=== PATIENT | female | born 1935 | race Caucasian/White ===

== ENCOUNTER 2017-06-20 12:07 | Inpatient (IN) ==
[2017-06-20 13:07] LABS: Albumin Level 1.5 gm/dL (3.4-5.0); Albumin/Globulin Ratio 0.4 (1.1-1.8); Anion Gap 9.4 mEq/L (5-15); Bilirubin,Total 0.2 mg/dL (0.2-1.0); Calcium 7.8 mg/dL (8.5-10.1); Globulin 3.9 gm/dl (1.3-3.2); Potassium 4.4 mmoL/L (3.5-5.1); Total Protein,Serum 5.4 gm/dL (6.4-8.2)
[2017-06-20 13:07] LABS: Microscopic, Urine URINE MICROSCOPIC (MICROSCOPIC)
[2017-06-20 13:08] LABS: Appearance,Urine CLEAR (Clear); Bilirubin,Urine Negative (Negative); Blood, Urine Negative (Negative); Color,Urine YELLOW (Yellow); Glucose,Urine (UA) Negative (Negative); Ketones,Urine Negative (Negative); Leukocyte Esterase,Urine Negative (Negative); PH,Urine 5.5 (5.0-8.5); Protein,Urine Negative (Negative); Specific Gravity, Urine 1.025 (1.005-1.030); Urobilinogen,Urine 0.2 EU/dl (0.2)
[2017-06-20 13:09] LABS: Basophils % 0.4 % (0.1-2.0); Eosinophils # 0.1 K/mm3 (0.0-0.4); Eosinophils % 1.9 % (0.1-12.0); Hematocrit 28.1 % (37.0-47.0); Hemoglobin 8.5 g/dL (12.2-16.2); Lymphocytes # 0.7 K/mm3 (0.7-4.5); Lymphocytes % 16.4 K/mm3 (10-50); Mean Corpuscular HGB Conc 30.3 g/dL (31.8-35.4); Mean Corpuscular Hemoglobin 30.9 pg (27.0-31.2); Mean Corpuscular Volume 101.9 fl (81-99); Mean Platelet Volume 7.8 fl (7.4-10.4); Monocytes # 0.2 K/mm3 (0.1-1.0); Monocytes % 5.1 % (1.7-9.3); Neutrophils # 3.3 K/mm3 (1.8-7.8); Neutrophils % 76.2 % (37.0-80.0); Platelet Count 190 K/mm3 (142-424); Red Blood Count 2.76 M/mm3 (4.20-5.40); Red Cell Distribution Width 18.5 % (11.5-17.5); White Blood Count 4.4 K/mm3 (4.8-10.8)
[2017-06-20 13:17] LABS: Bacteria,Urine 2+ /lpf; Yeast,Urine 1+ /lpf
--- NOTE | 2017-06-20 13:43 | Emergency Department Note ---
ED Disposition Clinical Impression: Cellulitis Hypotension Qualifiers: Hypotension type: unspecified hypotension type Qualified Code(s): I95.9 - Hypotension, unspecified Anemia Qualifiers: Anemia type: other cause Other causes of anemia: other cause, not classified Qualified Code(s): D64.89 - Other specified anemias Disposition: Admitted As Inpatient Condition on Discharge: Good Time of Disposition: 16:01 - Critical Care Critical Care Time: No Attestation: On 06/20/17, the high probability of a clinically significant, sudden or life threatening deterioration of the following system(s) required my full and direct attention, intervention and personal management. The time I documented below is in addition to time spent performing reported procedures but includes the following listed in this critical care notation. Total Critical Care Time: 75 Vital system(s) involved:: Circulatory Failure My critical care processes included: Assessment & monitoring of V/S, Initial and Re-exams, Data Review/Interpretation, Coordinating Care, Medication Orders and management, Documentation Medical Decision Making - Medical Records Medical records reviewed: Yes: I reviewed the patient's medical records. - [place] Inquiry Pt receiving controlled substance: No Vital Signs: 06/20/17 12:17 06/20/17 14:17 06/20/17 16:03 Temperature 97.9 F Temperature Source Oral Pulse Rate Pulse Rate [Right Radial] 63 60 Respiratory Rate 16 20 Blood Pressure Blood Pressure [Right Radial Artery] 99/48 80/42 97/44 Blood Pressure Mean [Right Radial Artery] 65 54 61 Blood Pressure Source [Right Radial Artery] Automatic Cuff Manual Cuff/ Auscultation Manual Cuff/ Auscultation Blood Pressure Position [Right Radial Artery] Supine Supine Sitting 02 Sat by Pulse Oximetry 96 97 Oxygen Delivery Method Nasal Cannula Nasal Cannula Oxygen Flow Rate (LPM) 3 3 06/20/17 16:31 Temperature 98.4 F Temperature Source Pulse Rate 61 Pulse Rate [Right Radial] Respiratory Rate 16 Blood Pressure 93/51 Blood Pressure [Right Radial Artery] Blood Pressure Mean [Right Radial Artery] Blood Pressure Source [Right Radial Artery] Blood Pressure Position [Right Radial Artery] 02 Sat by Pulse Oximetry Oxygen Delivery Method Nasal Cannula Oxygen Flow Rate (LPM) - Lab Data Lab results reviewed: Yes: I reviewed the patient's lab results. Lab Results 06/20/17 12:38: Urine Color Yellow, Urine Appearance Clear, Urine pH 5.5, Ur Specific Savage 1.025, Urine Protein Negative, Urine Glucose (UA) Negative, Urine Ketones Negative, Urine Blood Negative, Urine Nitrate Negative, Urine Bilirubin Negative, Urine Urobilinogen 0.2, Ur Leukocyte Esterase Negative, Urine RBC None, Urine WBC 3-5, Ur Squamous Epith Cells 3-5, Urine Bacteria 2+, Urine Yeast 1+ 06/20/17 12:40: Total Creatine Kinase 28, CK-MB (CK-2) 1.6, CK-MB (CK-2) Rel Index 5.7 H, Troponin I < 0.02, Amylase 15 L 06/20/17 12:40: Lipase 26 L 06/20/17 12:45: WBC 4.4 L, RBC 2.76 L, Hgb 8.5 L, Hct 28.1 L, MCV 101.9 H, MCH 30.9, MCHC 30.3 L, RDW 18.5 H, Plt Count 190, MPV 7.8, Neut % (Auto) 76.2, Lymph % (Auto) 16.4, Maverick % (Auto) 5.1, Eos % (Auto) 1.9, Baso % (Auto) 0.4, Neut # (Auto) 3.3, Lymph # (Auto) 0.7, Maverick # (Auto) 0.2, Eos # (Auto) 0.1, Baso # (Auto) 0.0 06/20/17 12:45: Sodium 144, Potassium 4.4, Chloride 107, Carbon Dioxide 32, Anion Gap 9.4, BUN 21 H, Creatinine 1.64 H, Estimated Creat Clear 41, Estimated GFR 30 L, Est GFR ( Amer) 36 L, Glucose 73 L, Calcium 7.8 L, Total Bilirubin 0.2, AST 21, ALT 14, Alkaline Phosphatase 85, Total Protein 5.4 L, Albumin 1.5 L, Globulin 3.9 H, Albumin/Globulin Ratio 0.4 L 06/20/17 12:45: Lactic Acid 0.7 Result diagrams: 06/22/17 06:08 06/22/17 06:08 Orders (Tests/Meds): ED MEDICATIONS Generic Name Dose Route Start Last Admin Trade Name Freq PRN Reason Stop Dose Admin Acetaminophen 650 mg 06/21/17 01:55 06/21/17 01:45 Acetaminophen 325mg Tab PO 07/21/17 01:54 650 mg Q4HP PRN Administration MILD TO MODERATE PAIN Albuterol/Ipratropium 3 ml 06/21/17 09:04 Duoneb 3ml Neb IH 07/21/17 09:03 Q4HP PRN BREATHING Allopurinol 100 mg 06/21/17 21:00 06/21/17 20:27 Allopurinol 100mg Tablet PO 07/21/17 20:59 100 mg BID CORY Administration Alprazolam 0.5 mg 06/21/17 09:04 06/21/17 23:01 Xanax 0.5mg Tablet PO 07/21/17 09:03 0.5 mg BIDP PRN Administration Anxiety Amiodarone HCl 200 mg 06/22/17 09:00 Cordarone 200mg Tablet PO 07/22/17 08:59 DAILY CORY Ascorbic Acid 500 mg 06/21/17 21:00 06/21/17 20:27 Vitamin C 500mg Tablet PO 07/21/17 20:59 500 mg BID CORY Administration Atorvastatin Calcium 10 mg 06/21/17 21:00 06/21/17 20:27 Lipitor 10mg Tablet PO 07/21/17 20:59 10 mg HS CORY Administration Clopidogrel Bisulfate 75 mg 06/22/17 09:00 Plavix 75mg Tablet PO 07/22/17 08:59 DAILY CORY Famotidine 20 mg 06/21/17 21:00 06/21/17 20:28 Pepcid 20mg Tablet PO 07/21/17 20:59 20 mg BID CORY Administration Clindamycin Phosphate 600 mg/ 104 mls @ 104 mls/hr 06/20/17 17:00 06/22/17 04 :55 Sodium Chloride IV 07/04/17 16:59 104 mls/hr Q6H CORY Administration Protocol Sodium Chloride 1,000 mls @ 75 mls/hr 06/20/17 20:45 06/22/17 04:57 Sod Chlor 0.9% 1000ml Bag IV 07/20/17 20:44 75 mls/hr .[id number] CORY Administration Levothyroxine Sodium 88 mcg 06/22/17 09:00 Synthroid 88mcg (0.088mg) Tablet PO 07/22/17 08:59 DAILY CORY Loperamide HCl 4 mg 06/21/17 13:00 04/25/18 20:27 Imodium 2 Mg Capsule PO 07/21/17 12:59 4 mg TID CORY Administration Metolazone 5 mg 06/21/17 10:00 06/21/17 10:16 Metolazone 2.5mg Tablet PO 07/21/17 09:59 5 mg DAILY CORY Administration Metoprolol Tartrate 6.25 mg 06/22/17 09:00 Lopressor 25mg Tablet PO 07/22/17 08:59 DAILY CORY Multivitamins 1 each 06/21/17 17:00 06/21/17 18:14 Multi-Vitamin Plain PO 07/21/17 16:59 1 each 1700 CORY Administration Pt's Own Med 2.5 mg 06/21/17 21:00 06/21/17 20:34 Apixaban [Eliquis] 2 PO 07/21/17 20:59 2.5 mg .5 Mg BID CORY Administration Oxycodone HCl 5 mg 06/21/17 09:04 Oxyir 5mg Tablet PO 07/21/17 09:03 Q4HP PRN Pain Psyllium Hydrophilic Mucilloid 1 each 06/22/17 09:00 Psyllium Ud Packet PO 07/22/17 08:59 DAILY CORY Sodium Chloride 10 ml 06/20/17 20:34 Saline Flush 10ml Syringe IV 07/20/17 20:33 NEEDED PRN Maintain IV Site Tiotropium Sherrard 1 puffs 06/21/17 10:00 06/22/17 06:46 Spiriva 18mcg/Puff Inhaler IH 07/21/17 09:59 1 puffs DAILY CORY Administration Zinc Sulfate 220 mg 06/22/17 09:00 Zinc Sulfate 220mg Capsule PO 07/22/17 08:59 DAILY CROY Discontinued Medications Generic Name Dose Route Start Last Admin Trade Name Freq PRN Reason Stop Dose Admin Dronedarone 400 mg 06/21/17 21:00 Multaq 400mg Tablet PO 07/21/17 20:59 BID CORY Sodium Chloride 1,000 mls @ 999 mls/hr 06/20/17 12:45 06/20/17 12:58 Sod Chlor 0.9% 1000ml Bag IV 06/20/17 13:45 999 mls/hr .Q1H1M CORY Administration Sodium Chloride 1,000 mls @ 999 mls/hr 06/20/17 14:45 06/20/17 14:46 Sod Chlor 0.9% 1000ml Bag IV 06/20/17 15:45 999 mls/hr .Q1H1M CORY Administration Sodium Chloride 1,000 mls @ 125 mls/hr 06/20/17 16:24 06/20/17 17:07 Sod Chlor 0.9% 1000ml Bag IV 07/20/17 16:23 125 mls/hr .Q8H CORY Administration Sodium Chloride 250 mls @ 25 mls/hr 06/21/17 08:30 06/22/17 07:37 Sod Chlor 0.9% 250ml Bag IV 06/22/17 08:29 Not Given .Q10H CORY Non-Formulary Medication 1 packet 06/21/17 21:00 Arginaid Powder PO 07/21/17 20:59 BID CORY Non-Formulary Medication 50,000 unit 06/21/17 09:15 06/22/17 07:47 Cholecalciferol (Vitamin D3) [Vitamin D3 50,000 Unit Cap] PO 07/21/17 09:14 Not Given WEEKLY CORY Non-Formulary Medication 1,000 mcg 06/21/17 09:15 06/22/17 07:47 Cyanocobalamin (Vitamin B-12) [Vitamin B-12 1000mcg/Ml Oral Drops] IM 09:14 Not Given MONTHLY CORY Sodium Chloride 10 ml 06/20/17 16:24 Saline Flush 10ml Syringe IV 07/20/17 16:23 NEEDED PRN Maintain IV Site Sodium Chloride 3 ml 06/20/17 16:34 06/22/17 07:46 Sodium Choride 3ml Neb Soln IH 06/20/17 16:35 Not Given ONCE ONE ORDERS Category Date Time Status Blood Culture Stat Micro 06/20/17 12:40 Results Urine Culture Stat Micro 06/20/17 12:38 Results EKG Request [ECG Request by /Perlita] Stat Y 06/20/17 13:02 Stop Req - Radiology Data #1 Image(s): Chest Image Reviewed: Yes I reviewed the patient's radiology results, Yes I reviewed the patient's radiology image, Yes I discussed the image results w/the radiologist, Yes I have reviewed radiologist's interpretation Preliminary Findings: Abnormal [facility] [address] [place] [address] XRay Report Signed Patient: Shawanda Boogie MR#: [id number] : 1935 Acct:[id number] Age/Sex: 81 / F ADM Date: 06/20/17 Loc: ER Attending Dr: Ordering Physician: Raymundo Meza MD Date of Service: 06/20/17 Procedure(s): XR chest AP Accession Number(s): [id number] cc: Joe Carmen MD; Mark Villalta MD~ XR chest AP HISTORY: ITS.REASON: dyspnea ORDERING PHYSICIAN: Raymundo Meza MD PATIENT AGE: 81 years FINDINGS: There is cardiomegaly without failure. Small left pleural effusion with mild left basilar atelectasis. Bone plate is present over the lower cervical spine. There has been prior median sternotomy with cardiac pacemaker device present. Degenerative changes are present in the shoulders. IMPRESSION: Cardiomegaly with small left effusion Dictated By: Mark Villalta MD Signed By: <Electronically signed by Mark Villalta MD in OV> 06/20/17 1451 DD/ 1449 - CT Data CT Scan: Head Time Received: 14:[address] Reviewed: Yes: I have reviewed the patient's CT results, I discussed the CT results w/the radiologist, I have viewed the radiologist's interpretation Findings Narrative: [address] [facility] [address] [place] [address] CT Scan Report Signed Patient: Shawanda Boogie MR#: [id number] : 1935 Acct:[id number] Age/Sex: 81 / F ADM Date: 06/20/17 Loc: ER Attending Dr: Ordering Physician: Raymundo Meza MD Date of Service: 06/20/17 Procedure(s): CT abdomen pelvis wo con Accession Number(s): [id number] cc: Joe Carmen MD; Mark Villalta MD~ CT abdomen pelvis wo con CLINICAL INDICATION: Abdominal pain with infection at incision site, recent surgery ITS.REASON: s/p recent exploratory laparotomy ORDERING PHYSICIAN: Raymundo Meza MD PATIENT AGE: 81 years TECHNIQUE: Axial images obtained with sagittal and coronal reformats. All CT scans at the facility use one or more dose reduction, viz: automated exposure control; ma/kV adjustment per patient size (including targeted exams where dose is matched to indication; i.e. head); or iterative reconstruction technique. PROCEDURE: Oral Contrast: None IV Contrast: None . FINDINGS: There is a small left pleural effusion with trace right pleural effusion and mild bibasilar atelectasis. Mild fatty liver infiltration. Prior cholecystectomy. Splenomegaly at 15 cm. There is a small amount of perisplenic fluid. Nonobstructing right renal calculi noted in the mid pole the right kidney at 5 mm. Spleen and adrenal glands have an unremarkable appearance of pancreas. There is unremarkable. No intestinal obstruction or free air is evident. No evidence of appendicitis. Small amount retained colonic feces within the rectum. Sigmoid and descending colonic diverticula are present without evidence of diverticulitis. There is a ventral abdominal wall incision with surgical clips. There is opening of the wound along the inferior margin. There is a small focal area of increased density along the inferior aspect of the when within the subcutaneous soft tissues measuring 16 mm. This may represent a small amount hemorrhage/postsurgical change. No obvious abscess is evident within the abdominal wall for deep to the abdominal wall. There is mild haziness of the peritoneal fat as well as subcutaneous fat and presacral fat which may be seen with anasarca. Small amount fluid is present in the pelvis. There is an IVC filter present the tip below the level of the renal veins. Right renal artery stent is also noted. No evidence of aneurysm. There is sclerosis of SI joints and there is sclerotic increased density of the S1 vertebral segment. IMPRESSION: 1. Ventral abdominal wall incision open along the inferior margin. No evidence of abdominal wall abscess. 2. Small bilateral pleural effusions 3. Mild haziness of the mesenteric fat, subcutaneous fat, a presacral fat which may be related to anasarca with minimal amount abdominal ascites 4. Sclerosis of the S1 vertebral segment. This is nonspecific. Blastic metastatic focus could cause this finding. Dictated By: Mark Villalta MD Signed By: <Electronically signed by Mark Villalta MD in [place]> 06/20/17 1444 DD/ 1439 - ECG Data Tracing #1 I reviewed this ECG and interpreted as documented below: Normal sinus rhythm, heart rate 88, no acute ischemia ECG normal with no acute: arrhythmias, ischemia, conduction abnormalities, chamber hypertrophy Normal Sinus Rhythm: Yes - Physician Consults Physician Consulted: Salma Latham Time: 16:00 Reason -: Admission, Pt condition Comment/Response: Advise of patient's presentation and findings, agreeable with hospitalization. - Reevaluation(s) Time: 16:00 Reevaluation #1: Patient reevaluated, she remains hypotensive despite fluids, not requiring vasopressors yet. Discussed with family plan of treatment, requiring IV antibiotics, IV fluids, additional inpatient monitoring. Weakness HPI - General Chief complaint: Weakness Stated complaint: AMS Time Seen by Provider: 06/20/17 12:48 Mode of Arrival: EMS Source of Information: Patient Limitations: No Limitations Description of Symptoms (Recalled from ER Triage Doc. by RN): PT COMES TO ER. ARIANA ([facility]) REPORTS PT IS HERE FOR LOW BP, LOW OXYGEN SATS AND POSSIBLE ABD INFECTION. PTs SON STATES HER ABD INCISION LOOKS INFECTED. SEE NURSING NOTES FOR FURTHER DETAIL. - History of Present Illness HPI Narrative: This is an 81-year-old female patient who has been recently hospitalized at [facility] for 2 weeks, approximately 1 month ago and then transferred to [facility] where she spent another 2 weeks, for mesenteric ischemia. She underwent expiratory laparotomy, was discharged last week. Son brought her in because of low pulse oximetry readings, low blood pressure recordings. Patient is a very poor historian. Patient was seen by Yeison just a couple days ago, who has diagnosed her with a surgical wound infection, I started her on clindamycin. Complaint: generalized weakness Onset (ago): hour(s) (6) Duration: constant Location: generalized Migration: none Severity: moderate Severity scale (1-10): 6 Relieving factors: none Exacerbating factors: movement Associated symptoms: denies other symptoms - Related Data Home Medications Medication Instructions Recorded Confirmed ALPRAZolam [Xanax 0.5mg tab] 0.5 mg PO BIDP PRN 06/20/17 06/20/17 Acetaminophen [Tylenol 500mg 500 mg PO Q6 06/20/17 06/20/17 tablet] Allopurinol [Allopurinol 100mg 100 mg PO BID 06/20/17 06/20/17 tablet] Amiodarone HCl [Amiodarone 200mg 200 mg PO DAILY 06/20/17 06/20/17 Tab] Apixaban [Eliquis] 2.5 mg PO BID 06/20/17 06/20/17 Arginaid Powder 1 packet PO BID 06/20/17 06/20/17 Ascorbic Acid [Vitamin C 500mg 500 mg PO BID 06/20/17 06/20/17 tablet] Atorvastatin Calcium [Atorvastatin 10 mg PO HS 06/20/17 06/20/17 10mg Tab] Cholecalciferol (Vitamin D3) 50,000 unit PO WEEKLY 06/20/17 06/20/17 [Vitamin D3 50,000 unit Cap] Clopidogrel Bisulfate [Plavix 75mg 75 mg PO DAILY 06/20/17 06/20/17 Tab] Cyanocobalamin (Vitamin B-12) 1,000 mcg IM MONTHLY 06/20/17 06/20/17 [Vitamin B-12 1000mcg/ml Oral Drops] Dronedarone HCl [Multaq 400mg 400 mg PO BID 06/20/17 06/20/17 tablet] Famotidine [Pepcid 20mg Tablet] 20 mg PO BID 06/20/17 06/20/17 Ipratropium/Albuterol Sulfate 3 ml IH Q4HP PRN 06/20/17 06/20/17 [Duoneb 3mL neb] Levothyroxine Sodium [Synthroid 88 mcg PO DAILY 06/20/17 06/20/17 88mcg (0.088mg) tablet] Loperamide HCl [Loperamide] 4 mg PO TID 06/20/17 06/20/17 Metoprolol Tartrate [Lopressor 6.25 mg PO DAILY 06/20/17 06/20/17 25mg tablet] Multivitamin [Multivitamins] 1 each PO DAILY 06/20/17 06/20/17 Oxycodone HCl [OxyIR 5mg tablet] 5 mg PO Q4HP PRN 06/20/17 06/20/17 Psyllium Husk [Psyllium UD packet] 1 pack PO DAILY 06/20/17 06/20/17 Tiotropium Sherrard [Spiriva 18 mcg IH DAILY 06/20/17 06/20/17 18mcg/puff inhaler] Zinc Sulfate [Zinc-220] 220 mg PO DAILY 06/20/17 06/20/17 metOLazone [Metolazone 5mg Tab] 5 mg PO DAILY 06/20/17 06/20/17 Previous Rx's Medication Instructions Recorded Clindamycin HCl [Clindamycin 300mg 300 mg PO TID #30 capsule 06/22/17 Cap] Lactobacillus Acidophilus 1 each PO DAILY 30 Days capsule 06/22/17 [Probiotic] Allergies Allergy/AdvReac Type Severity Reaction Status Date / Time aspirin Allergy Intermediate Verified 06/20/17 12:37 cefuroxime [From Ceftin] Allergy Intermediate Verified 06/20/17 12:37 cephalexin [From Keflex] Allergy Intermediate Verified 06/20/17 12:37 influenza virus vaccine, Allergy Intermediate Verified 06/20/17 12:37 specific latex Allergy Intermediate Verified 06/20/17 12:37 Penicillins Allergy Intermediate Verified 06/20/17 12:37 sulfamethoxazole Allergy Intermediate Verified 06/20/17 12:37 [From Sulfamethoprim] trimethoprim Allergy Intermediate Verified 06/20/17 12:37 [From Sulfamethoprim] [facility] History I have reviewed the patient's past medical history: Yes Medical History: Denies:: Diabetes Mellitus Type 1, Diabetes Mellitus Type 2 Laterality Cases: Bilateral: Arthroscopy Knee, Arthroscopy Shoulder Fractures: Yes - Social History Alcohol Intake: never - Psychiatric History Expresses thoughts of harming self/others: None Suicide Plan Description: No Plan ROS Obtained: Yes All systems reviewed & no additional complaints, Yes Systems reviewed as appropriate & no additional complaints - Constitutional Constitutional: Reports fatigue Physical Exam - General General appearance: alert, in distress (moderate) - Head Head exam: atraumatic, normocephalic, normal inspection - Neck Neck exam: Present: normal inspection, full ROM, trachea midline. Absent: meningismus, lymphadenopathy - Chest Chest inspection: Present: normal inspection, symmetric chest wall rise. Absent : tenderness - Respiratory Respiratory exam: Present: normal lung sounds bilaterally. Absent: respiratory distress - Cardiovascular Cardiovascular exam: Present: regular rate, normal rhythm. Absent: JVD - Abdominal Exam Abdominal exam: Present: soft, normal bowel sounds. Absent: distention, tenderness, guarding - Extremities Exam Extremities exam: Present: normal inspection, full ROM, normal capillary refill. Absent: calf tenderness - Back Exam Back exam: Present: normal inspection. Absent: tenderness - Neurological Exam Neurological exam: Present: alert, oriented X3 - Psychiatric Psychiatric exam: Present: normal affect, normal mood - Skin Skin exam: Present: warm, dry, normal color, other (Abdominal surgical incision 10 cm long, with mild erythema, no purulent discharge)
[2017-06-20 14:51] LABS: Amylase 15 U/L (25-125); Creatine Kinase 28 U/L (26-192)
--- NOTE | 2017-06-20 17:11 | History & Physical Report ---
*Admission Date: 06/20/17 *Chief complaint: hypotension, weakness, abd pain *History of present illness: 81 year old female with multiple chronic medical conditions who recently underwent partial colectomy at [facility] for ischemic bowel was brought from [facility] where she now resides for evaluation of hypotension, low oxygen saturation and abdominal pain. Patient had a CVA during her stay at [facility] and has residual left sided hemiplegia and dysphagia. She does have severe right sided carotid stenosis and is to FU with neuro in 6-8 weeks. Patient was seen by PCP at [facility] yesterday who started clindamycin for superficial cellulitis around her abdominal incision. There was concern of low saturations at that time; however she did not appear hypoxic and pulse oximeter was having difficulty reading her level. In the ED, she was found to have saturations of 97% on 3L/NC. She was noted to be hypotensive on arrival with SBP 80. CXR showed small left sided effusion. CT head revealed an acute/subacute right occipital lobe infarct which is consistent with her recent CVA. Her hemoglobin was noted at 8.5. H/H at [facility] on 06/11/17 was 7.6/25.3. Patient was admitted for gentle rehydration, IV antibiotics and further evaluation. [facility] History I have reviewed the patient's past medical history: Yes Medical History: Denies:: Diabetes Mellitus Type 1, Diabetes Mellitus Type 2 Laterality Cases: Bilateral: Arthroscopy Knee, Arthroscopy Shoulder Fractures: Yes - *Social History Alcohol Intake: never - Psychiatric History Expresses thoughts of harming self/others: None Suicide Plan Description: No Plan Review of Systems - Review of Systems Review of systems:: pertinent systems reviewed and negative unless documented below - Constitutional Reports weakness - *Respiratory Reports cough - *Gastrointestinal Reports abdominal pain Comments: midline abdominal incision - *Neurologic Reports localized weakness Meds Home Medications Medication Instructions Recorded Confirmed Type ALPRAZolam [Xanax 0.5mg tab] 0.5 mg PO BIDP PRN 06/20/17 06/20/17 History Acetaminophen [Tylenol 500mg 500 mg PO Q6 06/20/17 06/20/17 History tablet] Allopurinol [Allopurinol 100mg 100 mg PO BID 06/20/17 06/20/17 History tablet] Amiodarone HCl [Amiodarone 200mg 200 mg PO DAILY 06/20/17 06/20/17 History Tab] Apixaban [Eliquis] 2.5 mg PO BID 06/20/17 06/20/17 History Arginaid Powder 1 packet PO BID 06/20/17 06/20/17 History Ascorbic Acid [Vitamin C 500mg 500 mg PO BID 06/20/17 06/20/17 History tablet] Atorvastatin Calcium [Atorvastatin 10 mg PO HS 06/20/17 06/20/17 History 10mg Tab] Cholecalciferol (Vitamin D3) 50,000 unit PO WEEKLY 06/20/17 06/20/17 History [Vitamin D3 50,000 unit Cap] Clindamycin HCl [Clindamycin 300mg 300 mg PO TID 06/20/17 06/20/17 History Cap] Clopidogrel Bisulfate [Plavix 75mg 75 mg PO DAILY 06/20/17 06/20/17 History Tab] Cyanocobalamin (Vitamin B-12) 1,000 mcg IM MONTHLY 06/20/17 06/20/17 History [Vitamin B-12 1000mcg/ml Oral Drops] Dronedarone HCl [Multaq 400mg 400 mg PO BID 06/20/17 06/20/17 History tablet] Famotidine [Pepcid 20mg Tablet] 20 mg PO BID 06/20/17 06/20/17 History Ipratropium/Albuterol Sulfate 3 ml IH Q4HP PRN 06/20/17 06/20/17 History [Duoneb 3mL neb] Levothyroxine Sodium [Synthroid 88 mcg PO DAILY 06/20/17 06/20/17 History 88mcg (0.088mg) tablet] Loperamide HCl [Loperamide] 4 mg PO TID 06/20/17 06/20/17 History Metoprolol Tartrate [Lopressor 6.25 mg PO DAILY 06/20/17 06/20/17 History 25mg tablet] Multivitamin [Multivitamins] 1 each PO DAILY 06/20/17 06/20/17 History Oxycodone HCl [OxyIR 5mg tablet] 5 mg PO Q4HP PRN 06/20/17 06/20/17 History Protein Powder 2 each PO TID 06/20/17 06/20/17 History Psyllium Husk [Psyllium UD packet] 1 pack PO DAILY 06/20/17 06/20/17 History Tiotropium [place] [Spiriva 18 mcg IH DAILY 06/20/17 06/20/17 History 18mcg/puff inhaler] Zinc Sulfate [Zinc-220] 220 mg PO DAILY 06/20/17 06/20/17 History metOLazone [Metolazone 5mg Tab] 5 mg PO DAILY 06/20/17 06/20/17 History Allergies Allergy/AdvReac Type Severity Reaction Status Date / Time aspirin Allergy Intermediate Verified 06/20/17 12:37 cefuroxime [From Ceftin] Allergy Intermediate Verified 06/20/17 12:37 cephalexin [From Keflex] Allergy Intermediate Verified 06/20/17 12:37 influenza virus vaccine, Allergy Intermediate Verified 06/20/17 12:37 specific latex Allergy Intermediate Verified 06/20/17 12:37 Penicillins Allergy Intermediate Verified 06/20/17 12:37 sulfamethoxazole Allergy Intermediate Verified 06/20/17 12:37 [From Sulfamethoprim] trimethoprim Allergy Intermediate Verified 06/20/17 12:37 [From Sulfamethoprim] Exam Vital signs and Labs for Last 24 Hours: Temp Pulse Resp BP Pulse Ox 98.1 F 62 20 102/55 96 06/20/17 16:51 06/20/17 16:51 06/20/17 16:51 06/20/17 16:51 06/20/17 16:51 Laboratory Results - last 24 hr 06/20/17 12:38: Urine Color Yellow, Urine Appearance Clear, Urine pH 5.5, Ur Specific [place] 1.025, Urine Protein Negative, Urine Glucose (UA) Negative, Urine Ketones Negative, Urine Blood Negative, Urine Nitrate Negative, Urine Bilirubin Negative, Urine Urobilinogen 0.2, Ur Leukocyte Esterase Negative, Urine RBC None, Urine WBC 3-5, Ur Squamous Epith Cells 3-5, Urine Bacteria 2+, Urine Yeast 1+ 06/20/17 12:40: Total Creatine Kinase 28, CK-MB (CK-2) 1.6, CK-MB (CK-2) Rel Index 5.7 H, Troponin I < 0.02, Amylase 15 L 06/20/17 12:40: Lipase 26 L 06/20/17 12:45: WBC 4.4 L, RBC 2.76 L, Hgb 8.5 L, Hct 28.1 L, MCV 101.9 H, MCH 30.9, MCHC 30.3 L, RDW 18.5 H, Plt Count 190, MPV 7.8, Neut % (Auto) 76.2, Lymph % (Auto) 16.4, Howell % (Auto) 5.1, Eos % (Auto) 1.9, Baso % (Auto) 0.4, Neut # (Auto) 3.3, Lymph # (Auto) 0.7, Howell # (Auto) 0.2, Eos # (Auto) 0.1, Baso # (Auto) 0.0 06/20/17 12:45: Sodium 144, Potassium 4.4, Chloride 107, Carbon Dioxide 32, Anion Gap 9.4, BUN 21 H, Creatinine 1.64 H, Estimated Creat Clear 41, Estimated GFR 30 L, Est GFR ( Amer) 36 L, Glucose 73 L, Calcium 7.8 L, Total Bilirubin 0.2, AST 21, ALT 14, Alkaline Phosphatase 85, Total Protein 5.4 L, Albumin 1.5 L, Globulin 3.9 H, Albumin/Globulin Ratio 0.4 L 06/20/17 12:45: Lactic Acid 0.7 I & O for Last 24 hours: Intake & Output 06/18/17 06/19/17 06/20/17 06/21/17 11:59 11:59 11:59 11:59 Weight 201 lb 1 oz Narrative: ALert and oriented x3 with some confusion. Inappropriate at times. Rate and rhythm regular. 1-2+ BLE edema left > right. LLE, LUE wounds as noted in chart. Midline abdominal incision with natalie, approx 1cm opening pack at lower portion of wound, erythematous with scant yellow drainage. Skin abrasions bilateral sides of abdomen. Mild tenderness, normoactive bowel sounds. Left hemiplegia at baseline. No new neuro deficits. H&P: Result - Labs Labs: Short CBC 06/20/17 Range/Units 12:45 WBC 4.4 L (4.8-10.8) K/mm3 Hgb 8.5 L (12.2-16.2) g/dL Hct 28.1 L (37.0-47.0) % Plt Count 190 (142-424) K/mm3 BMP 06/20/17 12:45 Sodium 144 Potassium 4.4 Chloride 107 Carbon Dioxide 32 BUN 21 H Creatinine 1.64 H Glucose 73 L Calcium 7.8 L Cardiac Enzymes 06/20/17 Range/Units 12:40 Total Creatine Kinase 28 (26-192) U/L CK-MB (CK-2) 1.6 (0.0-3.6) ng/ml Troponin I < 0.02 (0.00-0.06) ng/ml Liver Function 06/20/17 Range/Units 12:45 Total Bilirubin 0.2 (0.2-1.0) mg/dL AST 21 (15-37) U/L ALT 14 (12-78) U/L Alkaline Phosphatase 85 (46-116) U/L Albumin 1.5 L (3.4-5.0) gm/dL Urine 06/20/17 Range/Units 12:38 Urine Color Yellow (Yellow) Urine Appearance Clear (Clear) Urine pH 5.5 (5.0-8.5) Ur Specific [place] 1.025 (1.005-1.030) Urine Protein Negative (Negative) Urine Glucose (UA) Negative (Negative) Assessment and Plan (1) S/P partial colectomy Current visit: Yes Status: Acute Category: Surgical Code(s): Z90.49 - Acquired absence of other specified parts of digestive tract (2) Cellulitis, abdominal wall Current visit: Yes Status: Acute Category: Medical Code(s): L03.311 - Cellulitis of abdominal wall (3) Dysphagia Current visit: Yes Status: Chronic Category: Medical Code(s): R13.10 - Dysphagia, unspecified (4) Hemiparesis affecting left side as late effect of cerebrovascular accident Current visit: Yes Status: Chronic Category: Medical Code(s): I69.354 - Hemiplegia and hemiparesis following cerebral infarction affecting left non- dominant side - Assessment and plan all Dx Assessment and Plan for all problems:: Gentle hydration with IVF's. Will monitor H/H; although is it up from previous labs at [facility]. Continue clindamycin. Patient has muliple nallergies to antibiotics, may consider adding vanc tomorrow pending wound appearance. Consult PT for wound care.
[2017-06-20 17:32] LABS: Creatine Kinase 38 U/L (26-192)
--- NOTE | 2017-06-21 07:29 | Pharmacy Consult Notes ---
[facility] Pharmacy VTE Monitoring - Patient Demographics Admission date: 06/20/17 Report Date: 06/21/17 Time: 07:29 Allergies/Adverse Reactions: Patient Allergies aspirin Allergy (Intermediate, Verified 06/20/17 12:37) cefuroxime [From Ceftin] Allergy (Intermediate, Verified 06/20/17 12:37) cephalexin [From Keflex] Allergy (Intermediate, Verified 06/20/17 12:37) influenza virus vaccine, specific Allergy (Intermediate, Verified 06/20/17 12:37 ) latex Allergy (Intermediate, Verified 06/20/17 12:37) Penicillins Allergy (Intermediate, Verified 06/20/17 12:37) sulfamethoxazole [From Sulfamethoprim] Allergy (Intermediate, Verified 06/20/17 12:37) trimethoprim [From Sulfamethoprim] Allergy (Intermediate, Verified 06/20/17 12: 37) Height: 1.65 m Weight: 91.2 kg Patient Problems: Current Active Problems Hypotension (Acute) Anemia (Acute) S/P partial colectomy (Acute) Cellulitis, abdominal wall (Acute) Dysphagia (Chronic) Hemiparesis affecting left side as late effect of cerebrovascular accident ( Chronic) - VTE Risk Labs: VTE Related Lab Results Hgb 8.5 g/dL (12.2-16.2) L 06/20/17 12:45 Hct 28.1 % (37.0-47.0) L 06/20/17 12:45 Plt Count 190 K/mm3 (142-424) 06/20/17 12:45 BUN 21 mg/dL (7-18) H 06/20/17 12:45 Creatinine 1.64 mg/dL (0.55-1.02) H 06/20/17 12:45 Estimated Creat Clear 41 mL/min (0-300) 06/20/17 12:45 Was VTE Risk Assessment Performed: Yes VTE Score: 6 VTE Risk Level: Moderate Risk Clinical Trial Participant: No - Prophylaxis VTE Prophylaxis Ordered?: Yes Types of VTE Prophylaxis: TEDS Knee High
[2017-06-21 07:54] LABS: Basophils % 0.5 % (0.1-2.0); Eosinophils # 0.1 K/mm3 (0.0-0.4); Eosinophils % 1.7 % (0.1-12.0); Lymphocytes # 0.5 K/mm3 (0.7-4.5); Lymphocytes % 14.3 K/mm3 (10-50); Mean Corpuscular HGB Conc 29.6 g/dL (31.8-35.4); Mean Corpuscular Hemoglobin 30.7 pg (27.0-31.2); Mean Corpuscular Volume 103.9 fl (81-99); Mean Platelet Volume 7.8 fl (7.4-10.4); Monocytes # 0.3 K/mm3 (0.1-1.0); Monocytes % 8.4 % (1.7-9.3); Neutrophils # 2.7 K/mm3 (1.8-7.8); Platelet Count 150 K/mm3 (142-424); Red Blood Count 2.41 M/mm3 (4.20-5.40); Red Cell Distribution Width 18.6 % (11.5-17.5); White Blood Count 3.6 K/mm3 (4.8-10.8)
[2017-06-21 07:58] LABS: Anion Gap 8.4 mEq/L (5-15); Potassium 4.4 mmoL/L (3.5-5.1)
[2017-06-21 08:02] LABS: Hemoglobin 7.4 g/dL (12.2-16.2)
[2017-06-22 06:42] LABS: Basophils % 0.4 % (0.1-2.0); Eosinophils # 0.1 K/mm3 (0.0-0.4); Eosinophils % 1.5 % (0.1-12.0); Lymphocytes # 0.7 K/mm3 (0.7-4.5); Lymphocytes % 14.2 K/mm3 (10-50); Mean Corpuscular HGB Conc 30.6 g/dL (31.8-35.4); Mean Corpuscular Hemoglobin 30.4 pg (27.0-31.2); Mean Corpuscular Volume 99.5 fl (81-99); Mean Platelet Volume 7.7 fl (7.4-10.4); Monocytes # 0.3 K/mm3 (0.1-1.0); Neutrophils # 3.5 K/mm3 (1.8-7.8); Neutrophils % 76.9 % (37.0-80.0); Platelet Count 142 K/mm3 (142-424); Red Cell Distribution Width 18.5 % (11.5-17.5); White Blood Count 4.6 K/mm3 (4.8-10.8)
[2017-06-22 06:50] LABS: Anion Gap 6.5 mEq/L (5-15); Potassium 4.5 mmoL/L (3.5-5.1)
[2017-06-22 06:55] LABS: Hemoglobin 10.3 g/dL (12.2-16.2)
--- NOTE | 2017-06-22 08:32 | Discharge Summary ---
General - General Admission date:: 06/20/17 Discharge date: 06/22/17 HPI HPI: 81 year old female with multiple chronic medical conditions who recently underwent partial colectomy at [facility] for ischemic bowel was brought from [facility] where she now resides for evaluation of hypotension, low oxygen saturation and abdominal pain. Patient had a CVA during her stay at [facility] and has residual left sided hemiplegia and dysphagia. She does have severe right sided carotid stenosis and is to FU with neuro in 6-8 weeks. Patient was seen by PCP at [facility] yesterday who started clindamycin for superficial cellulitis around her abdominal incision. There was concern of low saturations at that time; however she did not appear hypoxic and pulse oximeter was having difficulty reading her level. In the ED, she was found to have saturations of 97% on 3L/NC. She was noted to be hypotensive on arrival with SBP 80. CXR showed small left sided effusion. CT head revealed an acute/subacute right occipital lobe infarct which is consistent with her recent CVA. Her hemoglobin was noted at 8.5. H/H at [facility] on 06/11/17 was 7.6/25.3. Patient was admitted for gentle rehydration, IV antibiotics and further evaluation. Hospital Course Hospital Course: Patient was admitted for IV antibiotics, gentle hydration and monitoring of anemia. Hemoglobin dropped to 7.6 and she was tranfused with 2 units of PRBCs. Hemoglobin has remained stable and noted was over 10 this morning. She was given clindamycin infusions and PT was consulted for wound care. Incision with less erythema today. She has had some confusion during her stay which may be her baseline. Discharge to [facility] on clindamycin 300 mg po TID x 10 days. Start probiotic. See medications reconciliation for complete list. CBC anc CMP on 06/26. FU with PCP in one week on normal ing day. Objective Vital signs: Temp Pulse Resp BP Pulse Ox 97.2 F L 62 20 110/49 100 06/22/17 07:59 06/22/17 07:59 06/22/17 07:59 06/22/17 07:59 06/22/17 07:59 Narrative: Alert and oriented x3 with some confusion. Rate and rhythm regular. Pulses 2+ bilaterally. 1-2+ BLE edema. Abdomen incision with less erythema. Lung sounds clear and equal Results Labs on day of discharge: Labs from last 24 hours 06/22/17 06/22/17 06/21/17 06:08 06:08 09:35 WBC 4.6 L D RBC 3.40 L D Hgb 10.3 L D Hct 34.0 L MCV 99.5 H MCH 30.4 MCHC 30.6 L RDW 18.5 H Plt Count 142 MPV 7.7 Neut % (Auto) 76.9 Lymph % (Auto) 14.2 Pershing % (Auto) 7.0 Eos % (Auto) 1.5 Baso % (Auto) 0.4 Neut # (Auto) 3.5 Lymph # (Auto) 0.7 Pershing # (Auto) 0.3 Eos # (Auto) 0.1 Baso # (Auto) 0.0 Sodium 144 Potassium 4.5 Chloride 110 H Carbon Dioxide 32 Anion Gap 6.5 BUN 20 H Creatinine 1.50 H Estimated Creat Clear 42 Estimated GFR 33 L Est GFR ( Amer) 40 L Glucose 67 L Blood Type Blood Type Confirm O Positive Antibody Screen Crossmatch ([facility]) 06/21/17 08:45 WBC RBC Hgb Hct MCV MCH MCHC RDW Plt Count MPV Neut % (Auto) Lymph % (Auto) Pershing % (Auto) Eos % (Auto) Baso % (Auto) Neut # (Auto) Lymph # (Auto) Pershing # (Auto) Eos # (Auto) Baso # (Auto) Sodium Potassium Chloride Carbon Dioxide Anion Gap BUN Creatinine Estimated Creat Clear Estimated GFR Est GFR ( Amer) Glucose Blood Type O Positive Blood Type Confirm Antibody Screen Negative Crossmatch ([facility]) See Detail Preliminary micro results at discharge 06/20/17 12:38 Urine Culture - Preliminary Urine,Catheterized NO GROWTH AFTER 24 HOURS 06/20/17 12:40 Blood Culture - Preliminary Blood NO GROWTH AFTER 24 HOURS 06/20/17 12:40 Blood Culture - Preliminary Blood NO GROWTH AFTER 24 HOURS DS: Diagnosis - Discharge Diagnosis (1) S/P partial colectomy Status: Acute (2) Cellulitis, abdominal wall Status: Acute (3) Dysphagia Status: Chronic (4) Hemiparesis affecting left side as late effect of cerebrovascular accident Status: Chronic Discharge Plan - Patient Discharge Instructions ACTIVITY: Continue current activity DIET: continue same diet - Follow up Plan Follow up with: Salma Latham APRN [Nurse Practitioner] - 06/26/17 Home Medications: Home Medications Medication Instructions Recorded Confirmed Type ALPRAZolam [Xanax 0.5mg tab] 0.5 mg PO BIDP PRN 06/20/17 06/20/17 History Acetaminophen [Tylenol 500mg 500 mg PO Q6 06/20/17 06/20/17 History tablet] Allopurinol [Allopurinol 100mg 100 mg PO BID 06/20/17 06/20/17 History tablet] Amiodarone HCl [Amiodarone 200mg 200 mg PO DAILY 06/20/17 06/20/17 History Tab] Apixaban [Eliquis] 2.5 mg PO BID 06/20/17 06/20/17 History Arginaid Powder 1 packet PO BID 06/20/17 06/20/17 History Ascorbic Acid [Vitamin C 500mg 500 mg PO BID 06/20/17 06/20/17 History tablet] Atorvastatin Calcium [Atorvastatin 10 mg PO HS 06/20/17 06/20/17 History 10mg Tab] Cholecalciferol (Vitamin D3) 50,000 unit PO WEEKLY 06/20/17 06/20/17 History [Vitamin D3 50,000 unit Cap] Clopidogrel Bisulfate [Plavix 75mg 75 mg PO DAILY 06/20/17 06/20/17 History Tab] Cyanocobalamin (Vitamin B-12) 1,000 mcg IM MONTHLY 06/20/17 06/20/17 History [Vitamin B-12 1000mcg/ml Oral Drops] Dronedarone HCl [Multaq 400mg 400 mg PO BID 06/20/17 06/20/17 History tablet] Famotidine [Pepcid 20mg Tablet] 20 mg PO BID 06/20/17 06/20/17 History Ipratropium/Albuterol Sulfate 3 ml IH Q4HP PRN 06/20/17 06/20/17 History [Duoneb 3mL neb] Levothyroxine Sodium [Synthroid 88 mcg PO DAILY 06/20/17 06/20/17 History 88mcg (0.088mg) tablet] Loperamide HCl [Loperamide] 4 mg PO TID 06/20/17 06/20/17 History Metoprolol Tartrate [Lopressor 6.25 mg PO DAILY 06/20/17 06/20/17 History 25mg tablet] Multivitamin [Multivitamins] 1 each PO DAILY 06/20/17 06/20/17 History Oxycodone HCl [OxyIR 5mg tablet] 5 mg PO Q4HP PRN 06/20/17 06/20/17 History Psyllium Husk [Psyllium UD packet] 1 pack PO DAILY 06/20/17 06/20/17 History Tiotropium [place] [Spiriva 18 mcg IH DAILY 06/20/17 06/20/17 History 18mcg/puff inhaler] Zinc Sulfate [Zinc-220] 220 mg PO DAILY 06/20/17 06/20/17 History metOLazone [Metolazone 5mg Tab] 5 mg PO DAILY 06/20/17 06/20/17 History Prescriptions/Medication Reconciliation: New Lactobacillus Acidophilus [Probiotic] 1 each PO DAILY 30 Days capsule Clindamycin HCl [Clindamycin 300mg Cap] 300 mg PO TID #30 capsule Continue Cholecalciferol (Vitamin D3) [Vitamin D3 50,000 unit Cap] 50,000 unit PO WEEKLY Cyanocobalamin (Vitamin B-12) [Vitamin B-12 1000mcg/ml Oral Drops] 1,000 mcg IM MONTHLY Atorvastatin Calcium [Atorvastatin 10mg Tab] 10 mg PO HS ALPRAZolam [Xanax 0.5mg tab] 0.5 mg PO BIDP PRN PRN Reason: Anxiety metOLazone [Metolazone 5mg Tab] 5 mg PO DAILY Clopidogrel Bisulfate [Plavix 75mg Tab] 75 mg PO DAILY Amiodarone HCl [Amiodarone 200mg Tab] 200 mg PO DAILY Acetaminophen [Tylenol 500mg tablet] 500 mg PO Q6 Zinc Sulfate [Zinc-220] 220 mg PO DAILY Tiotropium [place] [Spiriva 18mcg/puff inhaler] 18 mcg IH DAILY Psyllium Husk [Psyllium UD packet] 1 pack PO DAILY Oxycodone HCl [OxyIR 5mg tablet] 5 mg PO Q4HP PRN PRN Reason: PAIN Multivitamin [Multivitamins] 1 each PO DAILY Metoprolol Tartrate [Lopressor 25mg tablet] 6.25 mg PO DAILY Loperamide HCl [Loperamide] 4 mg PO TID Levothyroxine Sodium [Synthroid 88mcg (0.088mg) tablet] 88 mcg PO DAILY Famotidine [Pepcid 20mg Tablet] 20 mg PO BID Dronedarone HCl [Multaq 400mg tablet] 400 mg PO BID Ascorbic Acid [Vitamin C 500mg tablet] 500 mg PO BID Arginaid Powder 1 packet PO BID Apixaban [Eliquis] 2.5 mg PO BID Allopurinol [Allopurinol 100mg tablet] 100 mg PO BID Ipratropium/Albuterol Sulfate [Duoneb 3mL neb] 3 ml IH Q4HP PRN PRN Reason: BREATHING
--- NOTE | 2017-06-22 09:51 | Progress Note ---
Internal Medicine - PN: Subj *Date: 06/21/17 *Time: 20:45 Interval history: Late Entry Note - patient seen on 06/21. Stable overnight. Tolerated abx well. Disoriented and some pain c/o from right leg. Exam Vital signs and Labs for Last 24 Hours: Temp Pulse Resp BP Pulse Ox 97.2 F L 62 20 110/49 100 06/22/17 07:59 06/22/17 07:59 06/22/17 07:59 06/22/17 07:59 06/22/17 07:59 Laboratory Results - last 24 hr 06/21/17 08:45: Blood Type O Positive, Antibody Screen Negative, Crossmatch ([facility] ) See Detail 06/21/17 09:35: Blood Type Confirm O Positive 06/22/17 06:08: WBC 4.6 L D, RBC 3.40 L D, Hgb 10.3 L D, Hct 34.0 L, MCV 99.5 H , MCH 30.4, MCHC 30.6 L, RDW 18.5 H, Plt Count 142, MPV 7.7, Neut % (Auto) 76.9 , Lymph % (Auto) 14.2, Wilcox % (Auto) 7.0, Eos % (Auto) 1.5, Baso % (Auto) 0.4, Neut # (Auto) 3.5, Lymph # (Auto) 0.7, Wilcox # (Auto) 0.3, Eos # (Auto) 0.1, Baso # (Auto) 0.0 06/22/17 06:08: Sodium 144, Potassium 4.5, Chloride 110 H, Carbon Dioxide 32, Anion Gap 6.5, BUN 20 H, Creatinine 1.50 H, Estimated Creat Clear 42, Estimated GFR 33 L, Est GFR ( Amer) 40 L, Glucose 67 L I & O for Last 24 hours: Intake & Output 06/19/17 06/20/17 06/21/17 06/22/17 11:59 11:59 11:59 11:59 Intake Total 1060 / 1060 2985 / 2985 Balance 1060 / 1060 2985 / 2985 Weight 201 lb 1 oz 201 lb 0.985 oz Microbiology Reports for the Last 24 Hours: Microbiology 06/20/17 12:38 Urine,Catheterized Urine Culture - Preliminary NO GROWTH AFTER 24 HOURS 06/20/17 12:40 Blood Blood Culture - Preliminary NO GROWTH AFTER 24 HOURS 06/20/17 12:40 Blood Blood Culture - Preliminary NO GROWTH AFTER 24 HOURS Narrative: Pale, disoriented. RRR, lungs with rhonchid. ABd wound unchanged. No edema in leg, foot w/o redness or gouty changes Assessment and Plan (1) S/P partial colectomy Current visit: Yes Status: Acute Category: Surgical Code(s): Z90.49 - Acquired absence of other specified parts of digestive tract (2) Cellulitis, abdominal wall Current visit: Yes Status: Acute Category: Medical Code(s): L03.311 - Cellulitis of abdominal wall (3) Dysphagia Current visit: Yes Status: Chronic Category: Medical Code(s): R13.10 - Dysphagia, unspecified (4) Hemiparesis affecting left side as late effect of cerebrovascular accident Current visit: Yes Status: Chronic Category: Medical Code(s): I69.354 - Hemiplegia and hemiparesis following cerebral infarction affecting left non- dominant side - Assessment and plan all Dx Assessment and Plan for all problems:: Transuse today... continue IV abx.
--- NOTE | 2017-06-23 09:41 | Progress Note ---
Internal Medicine - PN: Subj *Date: 06/23/17 *Time: 09:41 Exam Vital signs and Labs for Last 24 Hours: Temp Pulse Resp BP Pulse Ox 97.7 F 80 20 132/66 99 06/23/17 07:46 06/23/17 07:46 06/23/17 07:46 06/23/17 07:46 06/23/17 07:46 I & O for Last 24 hours: Intake & Output 06/20/17 06/21/17 06/22/17 06/23/17 23:59 23:59 23:59 23:59 Intake Total 2956 / 2956 1449 / 1449 Output Total Balance 2956 / 2956 1448 / 1448 Weight 91.2 kg 91.2 kg Microbiology Reports for the Last 24 Hours: Microbiology 06/20/17 12:38 Urine,Catheterized Urine Culture - Final NO GROWTH AFTER 48 HOURS 06/20/17 12:40 Blood Blood Culture - Preliminary NO GROWTH AFTER 48 HOURS 06/20/17 12:40 Blood Blood Culture - Preliminary NO GROWTH AFTER 48 HOURS Assessment and Plan (1) S/P partial colectomy Current visit: Yes Status: Acute Category: Surgical Code(s): Z90.49 - Acquired absence of other specified parts of digestive tract (2) Cellulitis, abdominal wall Current visit: Yes Status: Acute Category: Medical Code(s): L03.311 - Cellulitis of abdominal wall (3) Dysphagia Current visit: Yes Status: Chronic Category: Medical Code(s): R13.10 - Dysphagia, unspecified (4) Hemiparesis affecting left side as late effect of cerebrovascular accident Current visit: Yes Status: Chronic Category: Medical Code(s): I69.354 - Hemiplegia and hemiparesis following cerebral infarction affecting left non- dominant side The patient's infection will respond to the chosen ABx?: Yes Is the patient receiving the right drug, dose, and route?: Yes Could a more targeted ABx be ordered?: No
== END 2017-06-23 11:04 ==
LOC: ER 12:07 → 2ND 15:49
PROVIDERS: ADMIT Internal Medicine Adolescent Medicine; ATTEND Internal Medicine Adolescent Medicine